=== PATIENT | female | born 1945 | race Caucasian/White ===

== ENCOUNTER 2016-07-12 21:43 | Emergency (ER) | payer BC ==
[2016-07-12] MEDS ORDERED: HYDROmorphONE/DILAUDID 1 MG/ML SYR IM ONE (21:58)
[2016-07-12 21:59] VITALS: BP 158/79; PULSE 80; RESP 16; O2SAT 98
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
[2016-07-12 22:19] VITALS: TEMP 97.9
[2016-07-12] MEDS ORDERED: HYDROCOD/APAP 5/325 PREPACK#6 BTL TAKEHOME ONE (22:45)
== END 2016-07-12 23:12 | disposition home or self-care (01) ==
LOC: CED 21:43
PROC: 2W3QX1Z Immobilization of Right Lower Leg using Splint (ICD-10-PCS; principal; 2016-07-12)
DX: S82.891A Other fracture of right lower leg, initial encounter for closed fracture (principal); W19.XXXA Unspecified fall, initial encounter; Y92.830 Public park as the place of occurrence of the external cause; Z85.3 Personal history of malignant neoplasm of breast; Z88.0 Allergy status to penicillin; Z88.2 Allergy status to sulfonamides
CPT/HCPCS: 29505-PO; 73564-PO; 73610-PO; 96372-PO; 99214-PO; G0463-PO; J1170

== ENCOUNTER → 2016-07-12 | Outpatient (CLI) | payer BC | LOC: FIMAGING 13:41 | PROVIDERS: ATTEND Podiatrist | DX: D36.7 Benign neoplasm of other specified sites (principal) ==

== ENCOUNTER → 2016-09-13 | Outpatient (CLI) | payer BC | LOC: FIMAGING 11:54 | PROVIDERS: ATTEND Family Medicine | DX: Z12.31 Encounter for screening mammogram for malignant neoplasm of breast (principal); Z85.3 Personal history of malignant neoplasm of breast | CPT/HCPCS: G0202 ==

== ENCOUNTER 2017-05-14 16:00 | Emergency (ER) | payer BC ==
[2017-05-14] MEDS ORDERED: NS 1,000 ML IV ONE (16:32)
--- NOTE | 2017-05-14 16:40 | CPEKG ---
Heart Rate: 82 RR Interval: 732 P-R Interval: 188 QRSD Interval: 78 QT Interval: 384 QTC Interval: 449 P Fedscreek: 72 QRS Fedscreek: 74 T Wave Fedscreek: 58 EKG Severity - NORMAL ECG - EKG Impression: SINUS RHYTHM Electronically Signed By: Jose Bolivar 14-May-2017 20:22:17
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
[2017-05-14] MEDS ORDERED: ACETAMINOPHEN 500 MG TAB PO ONE (16:43)
[2017-05-14 16:55] LABS: PLATELET COUNT 340 10^3/uL (150-400)
[2017-05-14] MEDS ORDERED: IBUPROFEN 600 MG TAB PO ONE (18:26)
[2017-05-14 18:58] VITALS: RESP 18; O2SAT 96
[2017-05-14 19:00] VITALS: BP 143/88; PULSE 89; TEMP 98
== END 2017-05-14 18:58 | disposition home or self-care (01) ==
LOC: CED 16:00
DX: S02.2XXA Fracture of nasal bones, initial encounter for closed fracture (principal); S16.1XXA Strain of muscle, fascia and tendon at neck level, initial encounter; R55 Syncope and collapse; E86.9 Volume depletion, unspecified; Z85.3 Personal history of malignant neoplasm of breast; W18.09XA Striking against other object with subsequent fall, initial encounter; Y92.009 Unspecified place in unspecified non-institutional (private) residence as the place of occurrence of the external cause; Y93.01 Activity, walking, marching and hiking
CPT/HCPCS: 72125-PO; 80048-PO; 84484-PO; 85025-PO

== ENCOUNTER → 2017-09-17 | Outpatient (CLI) | payer BC | LOC: FIMAGING 10:25 | PROVIDERS: ATTEND Internal Medicine Hematology & Oncology | DX: Z12.31 Encounter for screening mammogram for malignant neoplasm of breast (principal); Z80.3 Family history of malignant neoplasm of breast ==

== ENCOUNTER 2018-07-01 07:32 | Emergency (ER) | payer OTHER, BC | END 2018-07-01 10:00 | disposition home or self-care (01) | LOC: CED 07:32 ==